=== PATIENT | male | born 1935 | race Caucasian/White ===

== ENCOUNTER 2016-09-22 08:37 | Outpatient (CLI) | payer MEDICARE ==
[2016-09-22 11:59] LABS: #Basophils 0.1 thou/uL (0.0-0.2); #Eosinphils 0.1 thou/uL (0.0-0.7); #Lymphocytes 1.6 thou/uL (1.20-3.40); #Monocytes 0.6 thou/uL (0.11-0.59); #Neutrophils 3.9 thou/uL (1.40-6.50); %Basophils 0.8 % (0.0-1.0); %Eosinophils 1.3 % (0.0-10.0); %Lymphocytes 25.9 % (21.0-51.0); %Monocytes 9.9 % (0.0-10.0); %Neutrophils 62.1 % (42.0-75.0); Hemoglobin 13.3 g/dL (14.0-18.0); Mean Corpuscular HGB CONC 32.2 g/dL (32.0-36.0); Mean Corpuscular Volume 90.1 fl (80.0-94.0); Mean Platelet Volume 6.8 fL (7.4-10.4); Platelet Count 170 thou/uL (130-400); RBC Distribution Width 14.2 % (11.5-14.5); Red Blood Cell (RBC) Count 4.58 mill/uL (4.70-6.10); White Blood Cell (WBC) Count 6.3 thou/uL (4.8-10.8)
[2016-09-22 12:32] LABS: ALT (SGPT) 11 U/L (8-55); AST (SGOT) 16 U/L (5-34); Albumin 4.5 g/dL (3.4-4.8); Alkaline Phosphatase 60 U/L (40-150); Anion Gap 16 mmol/L (10-20); BUN (Urea Nitrogen) 25 mg/dL (8.4-25.7); Bilirubin, Total 0.7 mg/dL (0.2-1.2); Calc. Creatinine Clearance 0 mL/min (70-130); Calcium 9.1 mg/dL (7.8-10.44); Carbon Dioxide 21 mmol/L (23-31); Cardiac Risk 2.1 (Less than 4.5); Chloride 107 mmol/L (98-107); Cholesterol 137 mg/dl (< 200 Desired); Estimated GFR-MDRD 41; Glucose 87 mg/dL (83-110); HDL Cholesterol 64 mg/dL (>60 Neg Risk); LDL Cholesterol, Calculated 63 mg/dL; Potassium 5.3 mmol/L (3.5-5.1); Protein, Total 7.5 g/dL (5.8-8.1); Sodium 139 mmol/L (136-145); Triglycerides 50 mg/dL (Less than 150)
== END 2016-09-22 08:38 | disposition home or self-care (01) ==
LOC: HPCALD 08:37
PROVIDERS: ATTEND Family Medicine
DX: E78.5 Hyperlipidemia, unspecified (principal); I10 Essential (primary) hypertension; N41.9 Inflammatory disease of prostate, unspecified; E53.8 Deficiency of other specified B group vitamins
CPT/HCPCS: 36415; 80053; 80061; 82607; 84153; 85025

== ENCOUNTER 2018-03-30 17:58 | Emergency (ER) | payer MEDICARE ==
[2018-03-30] MEDS ORDERED: cefTRIAXone\\ROCEPHIN 2 GM VIAL ONE (18:37)
[2018-03-30] MEDS ORDERED: Sodium Chloride 0.9% 100 ML ONE (18:37)
[2018-03-30 18:40] LABS: #Basophils 0.1 thou/uL (0.0-0.2); #Eosinphils 0.1 thou/uL (0.0-0.7); #Lymphocytes 0.9 thou/uL (1.20-3.40); #Monocytes 0.7 thou/uL (0.11-0.59); %Eosinophils 0.9 % (0.0-10.0); %Lymphocytes 15.9 % (21.0-51.0); %Monocytes 11.7 % (0.0-10.0); %Neutrophils 70.5 % (42.0-75.0); Hemoglobin 11.6 g/dL (14.0-18.0); Mean Corpuscular HGB CONC 32.2 g/dL (32.0-36.0); Mean Corpuscular Volume 80.6 fL (78.0-98.0); Platelet Count 256 thou/uL (130-400); RBC Distribution Width 13.8 % (11.5-14.5); Red Blood Cell (RBC) Count 4.46 mill/uL (4.70-6.10); White Blood Cell (WBC) Count 5.7 thou/uL (4.8-10.8)
[2018-03-30 18:51] LABS: ALT (SGPT) 10 U/L (8-55); AST (SGOT) 15 U/L (5-34); Albumin 4.1 g/dL (3.4-4.8); Alkaline Phosphatase 65 U/L (40-150); Anion Gap 14 mmol/L (10-20); BUN (Urea Nitrogen) 22 mg/dL (8.4-25.7); Bilirubin, Total 0.7 mg/dL (0.2-1.2); Calc. Creatinine Clearance 0 mL/min (70-130); Calcium 9.1 mg/dL (7.8-10.44); Carbon Dioxide 22 mmol/L (23-31); Chloride 102 mmol/L (98-107); Estimated GFR-MDRD 39; Globulin 3.2 g/dL (2.4-3.5); Glucose 114 mg/dL (83-110); Protein, Total 7.3 g/dL (5.8-8.1); Sodium 133 mmol/L (136-145)
[2018-03-30 19:13] LABS: CKMB 2.7 ng/mL (0-6.6)
[2018-03-30 19:20] LABS: Bilirubin Negative (Negative); Blood, Urine Negative (Negative); Clarity Clear (Clear); Glucose, Urine (Dipstick) Negative (Negative); Leukocyte Negative (Negative); Nitrite Negative (Negative); Protein, Urine (Dipstick) Negative (Neg-Trace); Specific Gravity, Urine 1.015 (1.005-1.030); Urobilinogen 0.2 mg/dL (0.2-1.0); pH, Urine 5.5 (5.0-9.0)
--- NOTE | 2018-03-30 19:34 | RAD ---
PORTABLE CHEST: 03/30/18 An AP portable film at 1802 is compared with an 02/19/14 study. There is a right pleural effusion of unknown etiology. The heart is enlarged. The upper lobe vessels are really not that congested. A little bit of streaking is seen in the left costophrenic angle of un certain significance. There has been a prior CABG. Generally, the lungs are clear. IMPRESSION: Moderate sized right pleural effusion of unknown etiology. Further followup needed. POS: HOME
--- NOTE | 2018-03-31 08:29 | CT ---
PRELIMINARY REPORT/[facility]/EMERGENTY AFTER-HOURS PROCEDURE CT Head Without Contrast EXAM DATE/TIME: 03/30/2018 7:41 PM CLINICAL HISTORY: 82 years old, male; Signs and symptoms; Altered mental status/memory loss; Confusion or disorientatio n; Patient HX: New oset confused TECHNIQUE: Axial computed tomography images of the head/brain without contrast. All CT scans at this facility use at least one of these dose optimization techniques: automated expos ure control; mA and/or kV adjustment per patient size (includes targeted exams where dose is matched to clinical indication); or iterative reconstruction. COMPARISON: No relevant prior studies available. FINDINGS: Brain: No intracrainal hemorrhage. No midline shift. The brain parenchyma appears normal for age. Mod erate global cerebral volume loss Ventricles: No ventriculomegaly. Bones/joints: Normal. No acute fracture. Sinuses: Normal as visualized. No acute sinusitis. Mastoid air cells: Normal as visualized. No mastoid effusion. Soft tissues: Normal. IMPRESSION: No acute intracranial abnormality. Thank you for allowing us to participate in the care of your patient. Dictated and Authenticated by: Rob Roland MD 03/30/2018 8:22 PM Central Time ([place] & [place]) CT OF THE BRAIN WITHOUT CONTRAST: 03/30/[address] was done for evaluation of mental status changes. Comparison is made with an [address] [facility]. Diffuse atrophy and mild compensatory dilatation of the ventricles is present as before. No intracran ial bleeding, mass or edema was seen. There is a small amount of deep white matter hypolucency typica l of mild chronic ischemic changes. Basal ganglia calcifications are noted. The skull appears intact. There is some curious mottling of the vertex portions of the skull, but this was present in 2013 and has not changed. The visible paranasal sinuses are clear. IMPRESSION: Chronic changes but no acute findings. Report in agreement with preliminary reading by Heriberto. POS: HOME
== END 2018-03-30 21:12 | disposition short-term general hospital (02) ==
LOC: BURERS 17:58
DX: R41.82 Altered mental status, unspecified (principal); J90 Pleural effusion, not elsewhere classified; I25.2 Old myocardial infarction
CPT/HCPCS: 70450; 71045; 80053; 81003; 82553; 83605; 84484; 85025; 87040; 87086; 96365; 96375; J0696; J1956; J7050

== ENCOUNTER 2020-02-29 17:46 | Emergency (ER) | payer MEDICARE ==
[2020-02-29] MEDS ORDERED: Lidocaine 1% w/Epinephrine 1:100K 20 ML VIAL ONE (18:08)
[2020-02-29 18:35] LABS: #Eosinphils 0.1 thou/uL (0.0-0.7); #Monocytes 0.8 thou/uL (0.11-0.59); #Neutrophils 4.8 thou/uL (1.40-6.50); %Basophils 0.4 % (0.0-1.0); %Lymphocytes 14.8 % (21.0-51.0); %Monocytes 12.2 % (0.0-10.0); %Neutrophils 71.6 % (42.0-75.0); Hemoglobin 10.2 g/dL (14.0-18.0); Mean Corpuscular HGB CONC 31.9 g/dL (32.0-36.0); Mean Corpuscular Hemoglobin 30.5 pg (27.0-31.0); Mean Corpuscular Volume 95.7 fL (78.0-98.0); Mean Platelet Volume 6.5 fL (7.4-10.4); Platelet Count 181 thou/uL (130-400); RBC Distribution Width 12.9 % (11.5-14.5); Red Blood Cell (RBC) Count 3.36 mill/uL (4.70-6.10); White Blood Cell (WBC) Count 6.8 thou/uL (4.8-10.8)
[2020-02-29 18:48] LABS: ALT (SGPT) 10 U/L (8-55); AST (SGOT) 18 U/L (5-34); Albumin 4.3 g/dL (3.4-4.8); Alkaline Phosphatase 47 U/L (40-110); Anion Gap 19 mmol/L (10-20); BUN (Urea Nitrogen) 26 mg/dL (8.4-25.7); Bilirubin, Total 0.4 mg/dL (0.2-1.2); Calc. Creatinine Clearance 0 mL/min (70-130); Calcium 8.8 mg/dL (7.8-10.44); Carbon Dioxide 20 mmol/L (23-31); Chloride 94 mmol/L (98-107); Estimated GFR-MDRD 31; Glucose 85 mg/dL (83-110); Potassium 4.3 mmol/L (3.5-5.1); Protein, Total 7.3 g/dL (5.8-8.1); Sodium 129 mmol/L (136-145)
[2020-02-29 18:53] LABS: Acetaminophen Less than 6.0 mcg/mL (10.0-30.0); Alcohol 39 mg/dL (Less than 10); Salicylate Less than 8.0 mg/dL (15.0-30.0)
--- NOTE | 2020-02-29 19:00 | RAD ---
PORTABLE CHEST: 02/29/20 An AP portable film at 1840 is compared with a 11/13/18 study. The heart is mildly enlarged, perhaps s lightly more so than before. There is no congestive change or pleural effusion. There is no widening or shift to the mediastinum. There has been a prior CABG and a cardiac pacer is in place. The lungs a re clear. No fractures were appreciated. Degenerative changes are particularly prominent in the right shoulder. IMPRESSION: Mild cardiomegaly but no acute finding. POS: HOME
--- NOTE | 2020-02-29 19:06 | CT ---
CT OF THE BRAIN WITHOUT CONTRAST: 02/29/20 Comparison is made with the prior exam of 03/30/18 done at [facility]. Diffuse moderately severe atrophy is present. There is mild compensatory dilatation of the ventricles as expected. Some chronic ischemic changes are seen in the deep white matter but there is no evidenc e of parenchymal bleeding or extra-axial hematoma. No mass or stroke was found. No edema was seen. Th e skull appears intact and the visible paranasal sinuses and mastoid air cells are clear. IMPRESSION: Atrophy and chronic ischemic changes but no acute intracranial findings. POS: HOME
--- NOTE | 2020-02-29 19:11 | CT ---
CT OF THE CERVICAL SPINE 02/29/[address] of the cervical spine was done following trauma. No fracture, dislocation, or acute bony c hange was seen at any of the cervical levels. Disc space narrowing is present at all levels below C2. There are very large anterior osteophytes at C3 and below. Findings by level follow: C1-C2: No acute findings. C2-C3: Mild foraminal narrowing, slightly more on the left than right. C3-C4: Mild bilateral foraminal narrowing. C4-C5: Severe right foraminal narrowing and moderate left foraminal narrowing. C5-C6: Mild bilateral foraminal narrowing. C6-C7: Mild right foraminal narrowing and moderate left foraminal narrowing. C7-T1: Foramina are difficult to assess but there is at least bilateral foraminal narrowing to a mild degree. T1-T2: No acute findings. The lung apices are clear and show no pneumothorax. The top most slice shows some slight low density in the right lobe of the thyroid, but the finding is indeterminate as most of the gland is not seen. IMPRESSION: Diffuse degenerative changes as noted but no acute traumatic findings. Preliminary report called to Chon in ER at 1836 on 02/29/20. POS: HOME
[2020-02-29 19:34] LABS: Bilirubin Negative (Negative); Blood, Urine Trace (Negative); Clarity Clear (Clear); Glucose, Urine (Dipstick) Negative (Negative); Ketone, Urine Negative (Negative); Leukocyte Small (Negative); Nitrite Negative (Negative); Protein, Urine (Dipstick) Negative (Neg-Trace); Urobilinogen 0.2 mg/dL (Less than 2); pH, Urine 5.5 (5.0-9.0)
[2020-02-29 19:41] LABS: Bacteria/HPF 3+ HPF (None Seen); RBC/HPF 0-3 HPF (0-3); Squamous Epithelial 0-3 HPF (0-3)
[2020-02-29] MEDS ORDERED: Cephalexin 250 MG CAP ONE (20:15)
[2020-02-29] MEDS ORDERED: Bacitracin 1 PK ONE (20:20)
== END 2020-02-29 20:25 | disposition home or self-care (01) ==
LOC: BURERS 17:46
DX: S01.01XA Laceration without foreign body of scalp, initial encounter (principal); R77.8 Other specified abnormalities of plasma proteins; E87.1 Hypo-osmolality and hyponatremia; N39.0 Urinary tract infection, site not specified; N18.9 Chronic kidney disease, unspecified; I25.2 Old myocardial infarction; R29.700 NIHSS score 0; W17.89XA Other fall from one level to another, initial encounter
CPT/HCPCS: 12001; 36415; 70450; 71045; 72125; 80053; 80307; 81003; 81015; 82553; 83735; 84443; 84484; 85025; 87077; 87086; 87186; 93005; 94760